=== PATIENT | male | born 1960 | race Caucasian/White ===

== ENCOUNTER 2022-06-04 07:16 | Outpatient (CLI) | payer BC, SELFPAY | END 2022-06-04 07:17 | disposition home or self-care (01) | LOC: NFLDREF 06-05 09:55 | PROVIDERS: PCP Family Medicine; Referring Provider Family Medicine; Visit Provider Family Medicine | DX: Z00.00 Encounter for general adult medical examination without abnormal findings (principal); E78.5 Hyperlipidemia, unspecified; Z12.5 Encounter for screening for malignant neoplasm of prostate | CPT/HCPCS: 80053; 80061; 84153 ==

== ENCOUNTER 2023-06-05 07:25 | Outpatient (CLI) | payer OTHER, SELFPAY | END 2023-06-05 07:26 | disposition home or self-care (01) | LOC: NFLDREF 06-17 07:08 | PROVIDERS: PCP Family Medicine; Referring Provider Family Medicine; Visit Provider Family Medicine | DX: E78.5 Hyperlipidemia, unspecified (principal) | CPT/HCPCS: 80053; 80061 ==

== ENCOUNTER 2023-09-01 17:42 | Emergency (ER) | payer OTHER, SELFPAY ==
[2023-09-01 18:16] VITALS: BP 138/74; PULSE 69; RESP 18; TEMP 36.9; O2SAT 98; BMI 22.7
--- NOTE | 2023-09-01 18:22 | ED.GENADULT ---
HPI - General Adult General Chief complaint: Insect Bite Stated complaint: Likely deer tick bite L arm Time Seen by Provider: 09/01/23 18:08 History of Present Illness HPI narrative: Patient had tick removed under his left arm he has got a circular rash under his arm and a little bit of a scab. He thinks it is a small tick like a deer tick. He has no symptoms of illness. He is up-to-date on immunizations and has only cholesterol medication as his only medication. Related Data Previous Rx's ?Medication ?Instructions ?Recorded atorvastatin 40 mg tablet 40 mg PO QPM #90 tabs 06/10/23 Allergies Allergy/AdvReac Type Severity Reaction Status Date / Time No Known Allergies Allergy Unknown Unverified 06/10/23 08:34 Review of Systems Status of ROS: Reports: 6 or more systems reviewed and unremarkable except as noted in History and below [facility] Surgical History History of hernia repair ?Z98.890 - Other specified postprocedural states (ICD-10) ?Z87.19 - Personal history of other diseases of the digestive system (ICD-10) Social History What is your current living situation?: I presently have a place to live Problems where you live: declined to answer In the past 12 months, utilities in danger of being shut off: no In past 12 months, lack of transportation kept you from medical appts, meetings, work, or getting things needed for daily living: no In the past 12 mos, have been you worried that your food would run out before you had money to buy more?: never true In the past 12 mos, the food you bought just didn't last and you didn't have money to buy more?: never true Smoking Status: Never smoker Do you use any of these nicotine containing products: None Second hand tobacco smoke exposure: No How often do you have a drink containing alcohol: never How often do you have six or more drinks on one occasion: Never AUDIT-C Alcohol total score: 0 Non-prescribed substance use: denies use How often does anyone, including family, friends and others, physically hurt you: never How often does anyone, including family, friends and others, insult or talk down to you: never How often does anyone, including family, friends and others, threaten you with harm: never How often does anyone, including family, friends and others, scream or curse at you: never Little interest or pleasure in doing things: not at all Feeling down, depressed, or hopeless: not at all service: No Exam Narrative: Exam Narrative: Objective: Patient's vital signs are within normal limits He has got a scabbed area under his left bicep on the inner surface of his biceps there is a dime-size circular lesion around it but it appears more clear rather than a E and M rash. Does not appear to be any surrounding cellulitis. I do not detect any head of the tick or other remnants of the tick in his arm. Const: Vital Signs, click to edit/add: Vital Signs - 24 hr 09/01/23 18:16 Temperature 98.4 F Pulse Rate [Pulse Oximeter] 69 Respiratory Rate 18 Blood Pressure [Ri ght Upper Arm] 138/74 Pulse Oximetry 98 Oxygen Delivery Me thod Room Air Course Vital Signs Vital signs: Initial Vital Signs Temperature 98.4 F 09/01/23 18:16 Temperature Source Temporal Artery Scan 09/01/23 18:16 Pulse Rate 69 09/01/23 18:16 Pulse Rhythm Regular 09/01/23 18:16 Respiratory Rate 18 09/01/23 18:16 Blood Pressure 138/74 09/01/23 18:16 Blood Pressure Mean 95 09/01/23 18:16 Blood Pressure Position Sitting 09/01/23 18:16 Pulse Oximetry 98 09/01/23 18:16 Oxygen Delivery Method Room Air 09/01/23 18:16 Vital Signs Temperature 98.4 F 09/01/23 18:16 Pulse Rate 69 09/01/23 18:16 Respiratory Rate 18 09/01/23 18:16 Blood Pressure 138/74 09/01/23 18:16 Pulse Oximetry 98 09/01/23 18:16 Oxygen Delivery Method Room Air 09/01/23 18:16 Temperature 98.4 F 09/01/23 18:16 Pulse Rate 69 09/01/23 18:16 Respiratory Rate 18 09/01/23 18:16 Blood Pressure 138/74 09/01/23 18:16 Pulse Oximetry 98 09/01/23 18:16 Oxygen Delivery Method Room Air 09/01/23 18:16 Medical Decision Making MDM Narrative Medical decision making narrative: [age] year white male with a tick bite small tick probably a deer tick with a small circular lesion, not consistent with erythema migrans but I think I would cover him with doxycycline anyway given his bite and given the story of the tick removal. This was done in the last 24 hours and will start doxycycline 100 b.i.d. for 10 days. Discharge Plan Discharge Clinical Impression: Tick bite Patient Disposition: Home, Self-Care Condition: Stable Additional Instructions: Continue scrub the area couple times a day, doxycycline as prescribed, return as needed. Activity Level: No Restrictions Discharge Diet: Regular Prescriptions: No Action atorvastatin 40 mg tablet 40 mg PO QPM Qty: 90 3RF Follow Up/Referrals: Rob Blunt MD [Primary Care Provider] - Stand Alone Forms: MyHealth Info Instructions
--- OUTSIDE RECORDS SUMMARY | 2023-09-01 18:29 | XMS_ITS | Clinical Summary ---
Author Organization [facility] Address [place], [place] [address] Care Team Providers Care [employer] Animal Caretaker Name Role Phone Aisha Gallardo Primary Primary Care Provider Unavailabl e Allergies No known active allergies Medications Medication Sig Dispensed Refills Start Date End Date Status atorvastatin (LIPITOR) 40 mg tablet 2 08/25/2018 Active Active Problems Problem Noted Date Diagnosed Date Cortical senile cataract of both eyes 05/03/2022 Pterygium of left eye 04/20/2016 Hyperopia of both eyes with astigmatism and pres byopia 04/20/2016 Social History Tobacco Use Types Packs/Day Years Used Date Smoking Tobacco: Never Alcohol Use Standard Drinks/Week Comments Not Asked 0 (1 standard drink = 0.6 oz pur e alcohol) Alcoholic Drinks/day: 0.1 Sex and Gender Information Value Date Recorded Sex Assigned at Not on file Gender Identity Not on file Sexual Orientation Not on file Obstetrics History Last Filed Vital Signs Vital Sign Reading Time Taken Comments Blood Pressure 125/78 08/28/2018 5:02 PM CDT Pulse 70 08/28/2018 5:02 PM CDT Temperature - - Respiratory Rate - - Oxygen Saturation - - Inhaled Oxygen Concentration - - Weight 55.8 kg (123 lb) 12/01/2003 12:00 AM CDT Height - - Body Mass Index - - Plan of Treatment Health Maintenance Due Date Last Done Comments Tdap 1969 Depression screening for age 12+ 1970 HIV for age 15-65 1973 BMI (ht and wt on same day) for age 18+ 1976 Tetanus booster 1978 Colonoscopy through age 75 07/16/2003 Lipids for age 45-75 07/16/2003 Zoster (shingles) series for age 50+ (1 of 2) 2008 COVID-19 vaccine series (4 - 2022-24 season) 2022 02/14/2021, 2020, 06/25/2020 Pneumococcal series for age 65+ (1 of 1 - PCV) 07/16/2023 Influenza for age 65+ 11/24/2023 Hepatitis C screening for age 18-79 Completed 11/30 Procedures Procedure Name Priority Date/Time Associated Diagnosis Comments ANTI HCV Timed 12/01/2003 4:17 PM CDT from Last 3 Months or Most Recently Relevant to Health Maintenance Results * ANTI HCV (12/01/2003 4:17 PM CDT) ANTI HCV Non-reactiv e [facility] 12/01/2003 4:17 PM CDT 12/02/2003 2:56 PM CDT Narrative [facility] - 12/05/2003 12:38 PM CDT Testing Performed By [place], [place] Keli Yousif MD SEND OUTS [facility] [address] [place] [address] from Last 3 Months or Most Recently Relevant to Health Maintenance Care Teams [employer] Animal Caretaker Relationship Specialty Start Date End Date , No Primary . PCP - General 06/03/06
== END 2023-09-01 18:49 | disposition home or self-care (01) ==
LOC: ED 18:28
PROVIDERS: Emergency Provider Family Medicine; PCP Family Medicine
DX: S40.862A Insect bite (nonvenomous) of left upper arm, initial encounter (principal); W57.XXXA Bitten or stung by nonvenomous insect and other nonvenomous arthropods, initial encounter
CPT/HCPCS: 99282; 99283

== ENCOUNTER 2024-06-03 07:26 | Outpatient (CLI) | payer OTHER, SELFPAY | END 2024-06-03 07:27 | disposition home or self-care (01) | LOC: NFLDREF 06-05 04:19 | PROVIDERS: PCP Family Medicine; Referring Provider Family Medicine; Visit Provider Family Medicine | DX: E78.5 Hyperlipidemia, unspecified (principal) | CPT/HCPCS: 80053; 80061 ==